=== PATIENT | male | born 1965 | race Caucasian/White ===

== ENCOUNTER 2022-04-06 08:28 | Emergency (ER) | payer BC ==
[~2022-04-06] VITALS: Ht 185.4 cm; Wt 86.0 kg
[2022-04-06] MEDS ORDERED: ASPIRIN 325 MG TABLET PO ONE (09:00)
[2022-04-06] MEDS ORDERED: IV NORMAL SALINE 1000ML BAG 1,000 ML IV ONE (09:00)
[2022-04-06] MEDS ORDERED: fentaNYL PF VIAL 100 MCG/2 ML VIAL IVP ONE (09:15)
[2022-04-06] MEDS ORDERED: ETOMIDATE 20 MG/10 ML VIAL. IV ONE (09:15)
[2022-04-06 09:17] LABS: BASO # 0.1 x10^3/uL (0.0-0.2); BASO % 1 % (0-3); EOS # 0.9 x10^3/uL (0.0-0.7); EOS % 9 % (0-3); HEMATOCRIT 43.5 % (39.0-53.0); LYMPH # 2.3 x10^3/uL (1.0-4.8); LYMPH % 23 % (24-48); MEAN CORPUSCULAR HEMOGLOBIN 33 pg (25-35); MEAN CORPUSCULAR HGB CONC 35 g/dL (31-37); MEAN CORPUSCULAR VOLUME 97 fL (79-100); MONO % 10 % (0-9); NEUT # 5.7 x10^3/uL (1.8-7.7); NEUT % 57 % (31-73); PLATELET COUNT 304 x10^3/uL (140-400); RED BLOOD COUNT 4.51 x10^6/uL (4.30-5.70); RED CELL DISTRIBUTION WIDTH 14.9 % (11.5-14.5); WHITE BLOOD COUNT 9.9 x10^3/uL (4.0-11.0)
[2022-04-06 09:18] LABS: CALCIUM 9.2 mg/dL (8.5-10.1); CREATININE 0.9 mg/dL (0.7-1.3)
[2022-04-06 09:24] LABS: ALBUMIN 3.9 g/dL (3.4-5.0); ALBUMIN/GLOBULIN RATIO 1.1 (1.0-1.7); MAGNESIUM 2.2 mg/dL (1.8-2.4); POTASSIUM 3.7 mmol/L (3.5-5.1); TOTAL BILIRUBIN 1.1 mg/dL (0.2-1.0); TOTAL PROTEIN 7.6 g/dL (6.4-8.2)
[2022-04-06 09:34] LABS: PROTHROMBIN TIME PATIENT 13.4 SEC (11.7-14.0)
--- NOTE | 2022-04-06 10:11 | RAD ---
EXAMINATION: Chest radiograph. VIEWS: Single AP view of the chest COMPARISON: None INDICATION:57 years, Male, palpitations FINDINGS: Normal cardiomediastinal silhouette. External defibrillator pads noted. No focal consolidation. No pl eural effusion or pneumothorax. No acute osseous process. IMPRESSION: No acute cardiopulmonary process. Electronically signed by: Jeff Patel DO (04/06/2022 10:09 AM) [id number]
[2022-04-06 10:20] LABS: FREE T4 0.99 ng/dL (0.76-1.46); THYROID STIM HORMONE (TSH) 4.884 uIU/mL (0.358-3.74)
--- NOTE | 2022-04-06 10:26 | PHYS DOC ---
Past Medical History Past Medical History: High Cholesterol Past Surgical History: No Surgical History Smoking Status: Current Every Day Smoker Alcohol Use: None Drug Use: None General Adult EDM: Chief Complaint: RAPID HEART RATE HPI: HPI: 57-year-old male presents with report of palpitations which started upon waking at approximately 0500 this morning. Patient reports has had intermittent epis odes of same with last occurrence approximately 4 years ago. Patient reports typically the symptoms go away on their own. Patient reports this morning symptoms did not improve. Denies any nausea or vomiting. Patient reports some dyspnea with exertion. Denies trauma. Denies increase in caffeinated beverages. Denies illicit drug use. Denies fever or chills. Denies leg swelling or calf tenderness. Review of Systems: Review of Systems: Constitutional: Denies fever or chills Eyes: Denies redness or eye pain HENT: Denies nasal congestion or sore throat Respiratory: Denies cough; reports dyspnea with exertion Cardiovascular: Reports chest discomfort and palpitations GI: Denies abdominal pain, nausea, or vomiting : Denies dysuria or hematuria Musculoskeletal: Denies back pain or joint pain Integument: Denies rash or skin lesions Neurologic: Denies headache, focal weakness or sensory changes Complete systems were reviewed and found to be within normal limits, except as documented in this note. Heart Score: C/O Chest Pain: Yes HEART Score for Chest Pain: HEART Score for Chest Pain Response (Comments) Value History Slighlty/Non-Suspicious 0 ECG Normal 0 Age >45 - < 65 1 Risk Factors 1 or 2 Risk Factors 1 Troponin < Normal Limit 0 Total 2 Risk Factors: Risk Factors: DM, Current or recent (<one month) smoker, HTN, HLP, family history of CAD, obesity. Risk Scores: Score 0 - 3: 2.5% MACE over next 6 weeks - Discharge Home Score 4 - 6: 20.3% MACE over next 6 weeks - Admit for Clinical Observation Score 7 - 10: 72.7% MACE over next 6 weeks - Early Invasive Strategies Current Medications: Current Medications Medications (Trade) Dose Ordered Sig/[facility] Start Time Stop Time Status Last Admin Dose Admin Aspirin (Tammie Aspirin) 325 mg 1X ONCE 04/06/22 09:00 04/06/22 09:11 DC 04/06/22 09:00 325 MG Diltiazem HCl (Cardizem Iv Push) 20 mg 1X ONCE 04/06/22 09:00 04/06/22 09:09 DC Etomidate (Amidate) 10 mg 1X ONCE 04/06/22 09:15 04/06/22 09:18 DC 04/06/22 09:33 10 MG Fentanyl Citrate (Fentanyl 2ml Vial) 100 mcg 1X ONCE 04/06/22 09:15 04/06/22 09:18 DC 04/06/22 09:35 100 MCG Sodium Chloride 1,000 ml @ 1,000 mls/hr 1X ONCE 04/06/22 09:00 04/06/22 09:59 DC 04/06/22 09:30 1,000 MLS/HR Allergies: Allergies: Allergies Coded Allergies Type Severity Reaction Last Updated Verified No Known Drug Allergies 04/06/22 No Physical Exam: PE: Constitutional: Well developed, well nourished, no acute distress, non-toxic appearance HENT: Normocephalic, atraumatic Eyes: Conjunctiva normal, no discharge Neck: Normal range of motion, supple Lungs & Thorax: No respiratory distress, equal chest rise and fall Cardiovascular: Tachycardic irregular rhythm Abdomen: Soft, no tenderness Skin: Warm, dry, no erythema, no rash Extremities: No tenderness, ROM intact, no edema Neurologic: Alert and oriented X 3, no focal deficits noted Psychologic: Affect normal, judgment normal Current Patient Data: Labs: Laboratory Tests Test 04/06/22 08:55 White Blood Count 9.9 x10^3/uL (4.0-11.0) Red Blood Count 4.51 x10^6/uL (4.30-5.70) Hemoglobin 15.0 g/dL (13.0-17.5) Hematocrit 43.5 % (39.0-53.0) Mean Corpuscular Volume 97 fL (79-100) Mean Corpuscular Hemoglobin 33 pg (25-35) Mean Corpuscular Hemoglobin Concent 35 g/dL (31-37) Red Cell Distribution Width 14.9 % (11.5-14.5) H Platelet Count 304 x10^3/uL (140-400) Neutrophils (%) (Auto) 57 % (31-73) Lymphocytes (%) (Auto) 23 % (24-48) L Monocytes (%) (Auto) 10 % (0-9) H Eosinophils (%) (Auto) 9 % (0-3) H Basophils (%) (Auto) 1 % (0-3) Neutrophils # (Auto) 5.7 x10^3/uL (1.8-7.7) Lymphocytes # (Auto) 2.3 x10^3/uL (1.0-4.8) Monocytes # (Auto) 1.0 x10^3/uL (0.0-1.1) Eosinophils # (Auto) 0.9 x10^3/uL (0.0-0.7) H Basophils # (Auto) 0.1 x10^3/uL (0.0-0.2) Prothrombin Time 13.4 SEC (11.7-14.0) Prothrombin Time INR 1.1 (0.8-1.1) Activated Partial Thromboplast Time 26 SEC (24-38) Sodium Level 143 mmol/L (136-145) Potassium Level 3.7 mmol/L (3.5-5.1) Chloride Level 106 mmol/L (98-107) Carbon Dioxide Level 24 mmol/L (21-32) Anion Gap 13 (6-14) Blood Urea Nitrogen 18 mg/dL (8-26) Creatinine 0.9 mg/dL (0.7-1.3) Estimated GFR (Cockcroft-Gault) 87.0 BUN/Creatinine Ratio 20 (6-20) Glucose Level 117 mg/dL (70-99) H Calcium Level 9.2 mg/dL (8.5-10.1) Magnesium Level 2.2 mg/dL (1.8-2.4) Total Bilirubin 1.1 mg/dL (0.2-1.0) H Aspartate Amino Transferase (AST) 31 U/L (15-37) Alanine Aminotransferase (ALT) 30 U/L (16-63) Alkaline Phosphatase 68 U/L (46-116) Troponin I High Sensitivity 11 ng/L (4-75) AF-Vwp-B-Type Natriuretic Peptide 196 pg/mL (0-124) H Total Protein 7.6 g/dL (6.4-8.2) Albumin 3.9 g/dL (3.4-5.0) Albumin/Globulin Ratio 1.1 (1.0-1.7) Lipase 97 U/L (73-393) Laboratory Tests 04/06/22 08:55 Laboratory Tests 04/06/22 08:55 Vital Signs: Vital Signs Date Time Temp Pulse Resp B/P (MAP) Pulse Ox O2 Delivery O2 Flow Rate FiO2 04/06/22 10:07 60 18 96 04/06/22 09:43 98.6 04/06/22 09:35 Room Air 04/06/22 08:42 128/76 (93) EKG: EKG: @0849 Afib RVR at 158bpm, NO ST elevation, QRS 84ms, QT/QTc 294/482ms @0950 s/p Electrical Cardioversion: NSR at 62bpm, NO ST elevation, QRS 86ms, QT/QTc 414/422ms Radiology/Procedures: Radiology/Procedures: PROCEDURE: PORTABLE CHEST 1V EXAMINATION: Chest radiograph. VIEWS: Single AP view of the chest COMPARISON: None INDICATION:57 years, Male, palpitations FINDINGS: Normal cardiomediastinal silhouette. External defibrillator pads noted. No focal consolidation. No pleural effusion or pneumothorax. No acute osseous process. IMPRESSION: No acute cardiopulmonary process. Electronically signed by: Jeff Patel DO (04/06/2022 10:09 AM) [id number] Course & Med Decision Making: Course & Med Decision Making Pertinent Labs and Imaging studies reviewed. (See chart for details) Patient presents with report of palpitations. EKG consistent for A. fib RVR. Patient with low cardiac risk factors. Reports symptoms have been ongoing for the past few hours. Decision to utilize electrical synchronized cardioversion. Written consent obtained. Moderate sedation utilized with successful synchronized cardioversion with 100 J. Initial administration of 50 J was unsuccessful. Labs obtained and posted to chart. Patient monitored until clinically sober after sedation. Patient stable for discharge with outpatient follow-up with PCP/Cardiology. Cardiology referral provided. Discussed findings and plan with patient, who acknowledges understanding and agreement. Dragon Disclaimer: Dragon Disclaimer: This electronic medical record was generated, in whole or in part, using a voice recognition dictation system. Departure Departure Impression: Primary Impression: Atrial fibrillation with rapid ventricular response Disposition: 01 HOME / SELF CARE / HOMELESS Condition: IMPROVED Referrals: YOLANDA SHEPHERD (PCP) NUBIA HADDAD MD Patient Instructions: Atrial Fibrillation, [id number], Cardioversion, Electrical, Sedation, Moderate, Adult MODERATE SEDATION ASSESSMENT* RISKS/ALTERNATIVES Risks/Alternatives Risks and alternatives of this type of sedation and procedure discussed with: RISK/ALTERNATIVES: Patient H & P ON CHART H & P H & P on chart and reviewed for co-morbid conditions and appropriate labs. H&P ON CHART: Yes STATUS PREG STATUS ASSESSED: N/A MEDS/ALLERGIES REVIEWED Meds/Allergies Reviewed Medications and Allergies including time and route of recently administered narcotics and sedatives. MEDS/ALLERGIES REVIEWED: Yes ASA RATING ASA RATING: II AIRWAY ASSESSMENT Airway Assessment Airway patency, oral function limitations, presence of caps, crowns, dentures, partials, and ability to extend neck assessed. AIRWAY ASSESSMENT: Yes MALLAMPATI SCORE MALLAMPATI SCORE: II PRE-SEDATION ASSESSMENT PRE-SEDATION ASSESSMENT: Yes Additional Procedures Progress Electrical synchronized cardioversion under moderate sedation Written consent obtained. Time out performed. Hand hygiene utilized. Monitoring in place including continuous pulse oximetry, end-tidal CO2, and telemetry. Intermittent blood pressure also utilized. Supplemental O2 at 2 L via nasal cannula also utilized. IV fluid bolusing in place. Moderate sedation initiated with 100 mcg of fentanyl as well as 10 mg of etomidate. Etomidate was pushed by myself. Electrical synchronization utilized with electrical cardioversion in itiated at 50 J x 1 without success. Secondary electrical cardioversion at 100 J was successful. A repeat EKG was obtained. Patient tolerated procedure well and without difficulty. Critical Care Time Critical care time was 30 minutes which includes time at bedside, spent in discussion of patient's care with specialists and/or family members, with interpretation of laboratory and/or radiological studies and is exclusive of procedures. KAY LORENZO DO April 06, 2022 10:26
[2022-04-06 10:52] VITALS: BP 132/87
--- NOTE | 2022-04-10 07:51 | EKG ---
[facility] [address] [place] [address] Test Date: 2022-04-06 Test Time: 09:50:22 Pat Name: OFELIA FAY Department: Room: Gender: M [employer]: : 1965 Requested By: KYA LORENZO Order Number: [id number] Reading MD: Jalil Wu MD Measurements Intervals [place] Rate: 62 P: 61 [place]: 148 QRS: 26 QRSD: 86 T: 27 QT: 414 QTc: 422 Interpretive Statements SINUS RHYTHM Electronically Signed On 04-10-2022 11:28:38 CDT by Jalil Wu MD
--- NOTE | 2022-04-10 07:51 | EKG ---
[facility] [address] [place] [address] Test Date: 2022-04-06 Test Time: 08:49:16 Pat Name: OFELIA FAY Department: Room: Gender: M [employer]: : 1965 Requested By: KAY LORENZO Order Number: [id number] Reading MD: Jalil Wu MD Measurements Intervals [address] Rate: 158 P: [place]: QRS: 36 QRSD: 84 T: 12 QT: 294 QTc: 482 Interpretive Statements Atrial fibrillation with rapid ventricular response NON-SPECIFIC ST/T CHANGES Electronically Signed On 04-10-2022 11:29:47 CDT by Jalil Wu MD
== END 2022-04-06 11:02 | disposition home or self-care (01) ==
LOC: ER 08:28
DX: I48.20 Chronic atrial fibrillation, unspecified (principal); E78.00 Pure hypercholesterolemia, unspecified; F17.200 Nicotine dependence, unspecified, uncomplicated
CPT/HCPCS: 36415; 71045; 80053; 83690; 83735; 83880; 84439; 84443; 84484; 85025; 85610; 85730; 92960; 93005; 96360; 99291; J3010; J3490; J7030